=== PATIENT | female | born 1945 | race Caucasian/White ===

== ENCOUNTER 2025-04-21 21:20 | Emergency (ER) | payer MEDICARE, OTHER ==
[~2025-04-21] VITALS: Ht 152.4 cm; Wt 61.2 kg
[2025-04-21 21:35] VITALS: TEMP 98.4
[2025-04-22 01:49] VITALS: BP 103/69; O2SAT 95
== END 2025-04-22 06:36 | disposition home or self-care (01) ==
LOC: ER 21:38
DX: F10.129 Alcohol abuse with intoxication, unspecified (principal); F03.90 Unspecified dementia, unspecified severity, without behavioral disturbance, psychotic disturbance, mood disturbance, and anxiety; R73.9 Hyperglycemia, unspecified; Z60.2 Problems related to living alone; Y90.9 Presence of alcohol in blood, level not specified
CPT/HCPCS: 82962-TC